=== PATIENT | female | born 1950 | race Caucasian/White ===

== ENCOUNTER 2022-07-25 08:41 | Day surgery (SDC) | payer MEDICARE ==
[2022-07-25] MEDS ORDERED: Propofol 200 MG/20 ML SDV IV ONE (08:42)
[2022-07-25] MEDS ORDERED: Glycopyrrolate 0.2 MG/ML 5 ML MDV IV ONE (08:42)
[2022-07-25] MEDS ORDERED: Sodium Chloride 0.9% 10 ML Syringe FLUSH PRN (09:00)
[2022-07-25] MEDS: Lactated Ringers 1,000 ML IV SCH (09:30)
== END 2022-07-25 11:46 | disposition home or self-care (01) ==
LOC: FB.SDS 08:41
PROVIDERS: ATTEND Surgery
DX: Z12.11 Encounter for screening for malignant neoplasm of colon (principal); K63.5 Polyp of colon; K57.30 Diverticulosis of large intestine without perforation or abscess without bleeding; K63.89 Other specified diseases of intestine; Z79.899 Other long term (current) drug therapy; D64.9 Anemia, unspecified; Z88.8 Allergy status to other drugs, medicaments and biological substances; E66.9 Obesity, unspecified; Z98.890 Other specified postprocedural states; Z87.891 Personal history of nicotine dependence; Z68.27 Body mass index [BMI] 27.0-27.9, adult
CPT/HCPCS: 00812; 88305; J2704; J3490; J7120